=== PATIENT | female | born 1990 | race Caucasian/White ===

== ENCOUNTER 2019-11-12 11:32 | Emergency (ER) | payer BC ==
[2019-11-12 11:53] VITALS: BP 112/81
[2019-11-12 12:04] LABS: Influenza A Molecular POSITIVE (Negative)
--- NOTE | 2019-11-12 12:23 | UC ---
FLU HPI - HPI Summary HPI Summary: 29 y/o female presents to the urgent care c/o headache, body aches, nasal congestion w/ clear nasal discharge, productive cough and fever for the past 2 days. Fever of 102F yesterday. She has taking otc supplements and tea to alleviate symptoms . She took 600mg ibuprofen today 1130 and her fever resolved. Pain is 6/10 w/ MORGAN and body aches. Pt denies dizziness. wheezing, abdominal pain, N/V/D, SOB, chest pain, . - History of Current Complaint Chief Complaint: UCRespiratory Stated Complaint: FEVER,BODY ACHES,HEADACHE Time Seen by Provider: 11/12/19 12:16 Hx Obtained From: Patient Hx Last Menstrual Period: "about a month ago" ?: No Onset/Duration: Gradual Onset, Lasting Days - 2 days, Still Present, Worse Since - last night Severity Currently: Mild Severity Initially: Moderate Pain Intensity: 6 Pain Scale Used: 0-10 Numeric Associated Signs & Symptoms: Positive: Fever, T Max - 102F, Myalgia, Cough - dry , Nasal Congestion, Headache. 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 Tonsils. LEFT foot w/ screw x1 - Family History Known Family History: Positive: Hypertension Family History: breast cnacer, aneurysm - Social History Occupation: Employed Full-time Lives: With Family Alcohol Use: Weekly Alcohol Amount: 1-2 drinks/week Substance Use Type: None Smoking Status (MU): Former Smoker When Did the Patient Quit Smoking/Using Tobacco: 2017 Review of Systems All Other Systems Reviewed And Are Negative: Yes Constitutional: Positive: Fever, Chills, Fatigue, Other - body aches Skin: Positive: Negative Eyes: Positive: Negative ENT: Positive: Sore Throat, Nasal Discharge - clear, Sinus Congestion, Sinus Pain/Tenderness, Other - PNBD Respiratory: Positive: Cough - dry Cardiovascular: Positive: Negative Gastrointestinal: Positive: Negative Genitourinary: Positive: Negative Motor: Positive: Negative Neurovascular: Positive: Negative Musculoskeletal: Positive: Myalgia Neurological/Mental Status: Positive: Headache Psychological: Positive: Negative Is Patient Immunocompromised?: No Physical Exam - Summary Physical Exam Summary: VITAL SIGNS: Reviewed. GENERAL: Patient is a well developed and nourished female who is sitting comfortably in the examining table. Patient is not in any acute respiratory distress. HEAD AND FACE: No signs of trauma. No ecchymosis, hematomas or skull depressions. No sinus tenderness. EYES: PERRLA, EOMI x 2, No injected conjunctiva, no nystagmus. No photophobia. EARS: Hearing grossly intact. Ear canals and tympanic membranes are within normal limits. MOUTH: Positive pharynx with mild erythema, no exudates, No B/L tonsillar enlargement , no exudate. Uvula in midline. edematous nasal mucosa w/ clear nasal discharge, clear PND NECK: Supple, trachea is midline, Positive anterior cervical lymphadenopathy, no JVD, no carotid bruit, no c-spine tenderness, neck with full ROM. No meningeal signs, no Kernig's or brudzinskis signs. CHEST: Symmetric, no tenderness at palpation LUNGS: Clear to auscultation bilaterally. No wheezing or crackles. CVS: Regular rate and rhythm, S1 and S2 present, no murmurs or gallops appreciated. ABDOMEN: Soft, non-tender. No signs of distention. No rebound no guarding, and no masses palpated. Bowel sounds are normal. EXTREMITIES: FROM in all major joints, no edema, no cyanosis or clubbing. NEURO: Alert and oriented x 3. No acute neurological deficits. Pt follows commands. SKIN: Dry and warm Triage Information Reviewed: Yes Vital Signs: Initial Vital Signs Temp 97.6 F 11/12/19 11:47 Pulse 107 11/12/19 11:47 Resp 16 11/12/19 11:47 BP 112/81 11/12/19 11:47 Pulse Ox 100 11/12/19 11:47 Flu Course/Dx - Course Course Of Treatment: 29 y/o female presents to the urgent care c/o headache, body aches, nasal congestion w/ clear nasal discharge, productive cough and fever for the past 2 days. Fever of 102F yesterday. She has taking otc supplements and tea to alleviate symptoms . She took 600mg ibuprofen today 1130 and her fever resolved. Pain is 6/10 w/ MORGAN and body aches. Pt denies dizziness. wheezing, abdominal pain, N/V/D, SOB, chest pain. Hx obtained. Medications reviewed. Pt with URI on examination. Rapid strep ordered, result: negative.Influenza A&B ordered: result: Influenza A positive.Pt Rx Tamiflu and ibuprofen PO to alleviate symptoms. Advised on hand washing and wearing a mask to avoid spreading. Pt advised to rest, increase fluid intake, eat well and avoid strenuous exercise. If symptoms do not improve or worsen advised to return to the urgent care or f/u with her PCP for further evaluation and treatment. Pt understood and agreed - Differential Dx/Diagnosis Differential Diagnosis/HQI/PQRI: Broncholiolitis, Influenza, Pneumonia, Upper Respiratory Infection Provider Diagnosis: Influenza A Discharge ED - Sign-Out/Discharge Documenting (check all that apply): Patient Departure - D/C home All imaging exams completed and their final reports reviewed: No Studies - Discharge Plan Condition: Stable Disposition: HOME Prescriptions: Oseltamivir CAP* [Tamiflu CAP*] 75 mg PO BID #10 cap Patient Education Materials: Influenza (ED) Forms: *Work Release Referrals: [facility] – [place] [facility] [Outside] - 3 Days Additional Instructions: 1- Please take the full course of the antiviral to avoid resistance. Encourage hand washing and wear a mask to avoid spreading. 2-Please continue taking Ibuprofen and alternate w/ Tylenol PO q6-8hrs prn as instructed after meals to alleviate fever, and sore throat. Increase fluid intake, eat well, rest and avoid strenuous exercise 3-If symptoms do not improve or worsen please return to the urgent care or f/u with your PCP in 3 days for further evaluation and treatment. - Billing Disposition and Condition Condition: STABLE Disposition: Home
== END 2019-11-12 12:53 | disposition home or self-care (01) ==
LOC: UCCORT 11:32
DX: J10.1 Influenza due to other identified influenza virus with other respiratory manifestations (principal); Z87.891 Personal history of nicotine dependence
CPT/HCPCS: 99202; G0463

== ENCOUNTER 2019-11-17 10:04 | Emergency (ER) | payer BC ==
[2019-11-17 10:36] VITALS: BP 122/77
--- NOTE | 2019-11-17 11:01 | UC ---
FLU HPI - HPI Summary HPI Summary: 29-year-old female who had flulike illness last week and she has recovered and needs a return to work note. - History of Current Complaint Chief Complaint: UCGeneralIllness Stated Complaint: FLU F/U <WANTS RETURN TO WORK NOTE> Time Seen by Provider: 11/17/19 10:58 Hx Obtained From: Patient Hx Last Menstrual Period: 11/13/19 ?: No Onset/Duration: Gradual Onset Severity Currently: None Severity Initially: Moderate Pain Intensity: 0 Associated Signs & Symptoms: Positive: Fever, Myalgia, Cough, Nasal Congestion, Headache Related Hx: Possible Flu/Infectious Exposure - Allergy/Home Medications Allergies/Adverse Reactions: Allergies Allergy/AdvReac Type Severity Reaction Status Date / Time No Known Allergies Allergy Verified 11/12/19 11:47 Home Medications: Home Medications NK [No Home Medications Reported] 11/17/19 [History Confirmed 11/17/19] PMH/Surg Hx/FS Hx/Imm Hx Previously Healthy: Yes - Surgical History Surgical History: Yes Surgery Procedure, Year, and Place: tumor 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 Tonsils. LEFT foot w/ screw x1 - Family History Known Family History: Positive: Hypertension Family History: breast cnacer, aneurysm - Social History Occupation: Employed Full-time Alcohol Use: Weekly Alcohol Amount: 1-2 drinks/week Substance Use Type: None Smoking Status (MU): Former Smoker When Did the Patient Quit Smoking/Using Tobacco: 2017 Review of Systems All Other Systems Reviewed And Are Negative: Yes Constitutional: Positive: Fever, Chills - Now resolved ENT: Positive: Nasal Discharge Respiratory: Positive: Cough Musculoskeletal: Positive: Myalgia Neurological/Mental Status: Positive: Headache - Symptoms now resolved Is Patient Immunocompromised?: No Physical Exam Triage Information Reviewed: Yes Appearance: Well-Appearing, No Pain Distress, Well-Nourished Vital Signs: Initial Vital Signs Temp 98.5 F 11/17/19 10:31 Pulse 70 11/17/19 10:31 Resp 15 11/17/19 10:31 BP 122/77 11/17/19 10:31 Pulse Ox 100 11/17/19 10:31 Vital Signs Reviewed: Yes Eyes: Positive: Conjunctiva Clear ENT: Positive: Pharynx normal, TMs normal, Uvula midline Neck: Positive: Supple, Nontender, No Lymphadenopathy Respiratory: Positive: Lungs clear, Normal breath sounds, No respiratory distress, No accessory muscle use Cardiovascular: Positive: RRR, No Murmur, Pulses Normal, Brisk Capillary Refill Musculoskeletal Exam: Normal Neurological Exam: Normal Psychological Exam: Normal Skin Exam: Normal Flu Course/Dx - Course Course Of Treatment: Patient is comfortable here. Her flulike illness since result. She was given a work note. - Differential Dx/Diagnosis Provider Diagnosis: Return to work evaluation Discharge ED - Sign-Out/Discharge Documenting (check all that apply): Patient Departure All imaging exams completed and their final reports reviewed: No Studies - Discharge Plan Condition: Good Disposition: HOME Forms: *Work Release Referrals: No Primary Care Phys,NOPCP [Primary Care Provider] - [facility] [Outside] Additional Instructions: Continue to increase fluids and get rest as much as possible and eat healthy. Follow-up with your primary care provider as needed. - Billing Disposition and Condition Condition: GOOD Disposition: Home
== END 2019-11-17 11:14 | disposition home or self-care (01) ==
LOC: UCCORT 10:04
DX: Z02.79 Encounter for issue of other medical certificate (principal); Z87.891 Personal history of nicotine dependence
CPT/HCPCS: 99211; G0463